=== PATIENT | female | born 1980 | race Caucasian/White ===

== ENCOUNTER 2016-10-16 09:59 | Emergency (ER) | payer OTHER ==
[~2016-10-16 09:59] MED LIST: CHOL200035 PO; OMEG1CAP25 PO; PREN1TAB47 PO; SYN.112T PO
[2016-10-16 10:34] VITALS: BP 100/60; PULSE 70; RESP 16; O2SAT 100
--- NOTE | 2016-10-16 10:48 | ED.REPORT ---
HPI-Extremity Problem Upper Date of Service Oct 16, 2016 ED Provider: Ceasar Ivey MD The patient is a 35 year old female who was brought to the emergency department by EMS after she had a ground level fall that occurred prior to arrival. The patient slipped on ice and injured her left upper extremity. Her pain is most severe to her shoulder and radiates down her arm. She also complains of numbness in her left arm. She did not hit her head or lose consciousness. She denies any other injuries or trauma. She has not injured her left arm or shoulder in the past. Nursing Notes Stated Complaint: LEFT ARM PAIN Chief Complaint: Extremity Trauma Nursing Notes Reviewed: Yes Allergies: Coded Allergies: TAPE (Verified Allergy, Unknown, 10/16/16) Uncoded Allergies: METAL (Allergy, Unknown, 07/28/16) Scheduled CHOLECALCIFEROL-Expunged Drug, Do Not Renew! (VITAMIN D3-Expunged Drug, Do Not Renew!) 2,000 Unit Capsule 2,000 UNIT PO DAILY Levothyroxine Inactive Drug Do Not Use (Synthroid-Expunged Drug, Do Not Renew!) 112 Mcg Tablet 0.112 MG PO DAILYAC 0.112 MG = 112 MCG [place]-3 Fatty Acids/Fish Oil-Expunged, Do Not ([place] 3 Fish Oil-Expunged, Do Not Renew!) 1 Cap.ec Capsule. 1 CAP.EC PO DAILY Vit/Fe Fumarate/Fa-Expunged Drug, Do (-Expunged Drug, Do Not Renew!) 1 Tab Tablet 1 TAB PO DAILY Scheduled PRN Cyclobenzaprine (Cyclobenzaprine) 5 Mg Tablet 5 MG PO HS PRN PRN Spasm Hydrocodone-Acetaminophen 5-325 mg (Hydrocodone-Acetaminophen 5-325 mg) 1 Each Tablet 1 TABLET PO Q4H PRN PRN For Pain General Time Seen by MD: 10:46 Chief Complaint Shoulder injury left, Arm injury left Hx Obtained From: Patient, EMS Arrived By: Ambulance Onset Occurred: Just prior to arrival Symptom Duration: Since onset Caused by: Fall on ground Location: : Arm left: Shoulder left Quality: Painful Severity: Current: Severe Severity: Maximum: Severe Recent Healthcare: No recent doctor visit, No recent hospitalization Similar Sx Previous: No Past Medical History Past Medical History hypothyroid 07/28/2016 Past Surgical History Reports: Family History noncontributory Smoking History Never Smoker Social History Alcohol Use: Denies alcohol use Drug Use: Denies drug use Other Social History: , Local resident Occupation has 4 children at home 07/28/2016 Ambulatory Status Independent Review of Systems Musculoskeletal: Reports: Extremity pain, Joint pain Neurologic: Reports: Numbness, Denies: Change LOC, Headache Complete sys rev & neg: except as marked. Physical Exam Initial Vital Signs Vital Signs (First) Date Time Temp Pulse Resp B/P Pulse Ox O2 Delivery O2 Flow Rate FiO2 10/16/16 10:34 36.2 70 16 100/60 100 10/16/16 12:30 Room Air Initial VS: Reviewed Head / Eyes: Atraumatic, Normocephalic, PERRL ENT: Mucous membranes moist, Conjunctiva normal, No scleral icterus Neck: Supple, Non-tender, Full range of motion Respiratory: Breath sounds normal, Clear to auscultation, No respiratory distress Cardiovascular: Regular rate & rhythm, Heart sounds normal, Intact distal pulses Abdomen / GI: Soft, Non-tender, No guarding, No rebound, No distention Lymphatic: No lymphadenopathy Lower Extremities: Vascular intact, Neuro intact, No swelling, No tenderness Skin: Warm, Dry, No cyanosis Neurologic: Alert, Oriented, Nonfocal Psychiatric: Mood/affect normal, Behavior normal, Normal thought content General/Constitutional: Awake, Alert, Cooperative Upper Extremity / MS: No deformity, Neurologic intact, Vascular intact There is no obvious deformity of her left shoulder, elbow, wrist or hand. Good pulses. She is holding her left arm at her side but it doesn't appear to be dislocated. There is no sign of any obvious fractures. She has tenderness about the lateral left upper arm at the deltoid and anterior shoulder. Neurovascular intact. Interpretation & Diagnostics X-Ray Interpretation Xray Interpretation: IMPRESSION: 1. Mildly comminuted left humeral neck fracture. Dictated by: Kamari Villanueva M.D. on 10/16/2016 at 11:25 X-Ray Ordered: Shoulder left Interpretation / Wet Read by: Interpret - Radiologist Re-Eval/Medical Decision Med Decision/Clinical Course Patient is a generally healthy 35-year-old female who presents with left shoulder pain after a ground-level fall occurring just prior to arrival. She has significant tenderness of her left shoulder though otherwise no evidence of acute traumatic injury. She is neurovascularly intact in the affected extremity. Plain films were obtained and demonstrated a mildly comminuted left humeral neck fracture. Patient was discussed with Dr. Pelaez who recommended sling, pain management and outpatient clinic follow-up. Here in the emergency department the patient was treated with oral norco and Ibuprofen. She declined IV pain medications. She was provided with a sling and referral to orthopedic surgery. She will call tomorrow for an appointment. Follow-up and return precautions were reviewed in detail she was discharged in good condition. She was provided with a prescription for Pegram for pain. She was provided with Flexeril to use at night for muscle spasm and advised not to combine this with narcotic pain medications. Source of Hx: Old records, EMS Re-Evaluation/Progress : Time of Eval: 12:03 Re-Evaluation/Progress Note: Rechecked the patient. Discussed plan for discharge with outpatient followup. All questions were addressed. Consultation : Referral / Consult Name: Zbigniew Pelaez MD Consulted With: Orthopedic Requested Call at: 11:41 Call Returned at: 12:00 Radio Operator: Will see in office, Agrees with eval, Agrees with plan Counseled Regarding: Diagnosis, Need for follow-up, When/why to return to ED Discharge & Departure Impression: Primary Impression: Fracture of neck of left humerus Encounter type: initial encounter Fracture type: closed Qualified Code: S42.212A - Unspecified displaced fracture of surgical neck of left humerus, initial encounter for closed fracture Additional Impression: Fall from ground level Disposition: Home Discharge Condition All VS Reviewed: Yes Condition: Stable Patient Instructions: Arm Fracture in Adults (ED) Additional Instructions: Thank you for seeking care at the emergency room. Our primary goal today in the ED was to evaluate you for any life-threatening conditions. Your evaluation was reassuring. You will be discharged with a prescription for Pegram and Flexeril. You should follow-up with an investor relations specialist in the next few days. We have given you a referral to Dr. Pelaez. Call their office today. Wear the sling until you are evaluated by the orthopedist. You should return to the ED immediately if you develop increased pain, numbness , weakness, or any other concerning signs or symptoms. Thank you for letting us partake in your care today. Narcotic Pain Medicine You have been prescribed a narcotic for pain relief. These drugs are usually combined with acetaminophen (Tylenol#3, Percocet, Darvocet, Anexsia, Vicodin) or aspirin (Empirin#3, Percodan, Synalogs-DC) for increased effect. Narcotics act on the central nervous system to reduce pain; they also impair mental alertness and physical abilities. We advise you not to drink alcohol, drive a car, or operate dangerous equipment when you are taking theses drugs. You can lessen stomach irritation from your medicine by taking it with meals or a full glass of water. Common side effects of narcotics are: Nausea and vomiting, heartburn, consitpation, dizziness, sleepiness, and mood changes. If you have bothersome side effects or symptoms of an allergic reaction (itching, hives, rash), stop taking your medicine and call your doctor or the emergency room right away. Please keep your narcotic medicine well out of the reach of children. Referrals: Shelley Haque (PCP) Zbigniew Pelaez MD Scribe Attestation Portions of this note were transcribed by Giselle Meza. I, Dr. Ivey personally performed the history, physical exam and medical decision-making; I reviewed and confirmed the accuracy of the information in the transcribed note. Signed by: Amol Denis, 10/16/2016 and 1215. copies to: Zbigniew Pelaez MD; Shelley Haque Beck O MD Oct 16, 2016 10:48 Giselle Meza Oct 16, 2016 10:54
[2016-10-16] MEDS ORDERED: HYDROcodone-APAP 5-325 mg Tablet PO ONE (11:25)
[2016-10-16] MEDS ORDERED: HYDR-4003 PO (11:29)
--- NOTE | 2016-10-16 11:30 | DRSVH ---
PROCEDURE: X-RAY LEFT SHOULDER, MINIMUM TWO VIEWS ([id number]) INDICATIONS: trauma TECHNIQUE: 3 views of the shoulder were acquired. COMPARISON: None. FINDINGS: Bones: There is a mildly comminuted fracture of the left humeral neck. No definite extension to the glenohumeral joint. Acromioclavicular joint also appears congruent. No suspicious bony lesions. Vi sualized ribs appear intact. Soft tissues: No suspicious soft tissue calcifications. IMPRESSION: 1. Mildly comminuted left humeral neck fracture. Dictated by: Kamari Villanueva M.D. on 10/16/2016 at 11:25 Approved by: Kamari Villanueva M.D. on 10/16/2016 at 11:28
[2016-10-16] MEDS ORDERED: CYCL5TAB PO (12:13)
[2016-10-16 12:30] VITALS: BP 103/63; PULSE 76; RESP 20; O2SAT 99
[2016-10-16 13:01] VITALS: BP 103/63; PULSE 76; RESP 20; O2SAT 99
== END 2016-10-16 12:05 | disposition home or self-care (01) ==
LOC: SED 09:59
DX: S42.212A Unspecified displaced fracture of surgical neck of left humerus, initial encounter for closed fracture (principal); W00.0XXA Fall on same level due to ice and snow, initial encounter; Y93.89 Activity, other specified; Y92.89 Other specified places as the place of occurrence of the external cause; Y99.8 Other external cause status; E03.9 Hypothyroidism, unspecified; Z91.048 Other nonmedicinal substance allergy status

== ENCOUNTER 2016-10-20 04:54 | Emergency (ER) | payer OTHER ==
[~2016-10-20] VITALS: Ht 165.1 cm; Wt 96.4 kg
[~2016-10-20 04:54] MED LIST changes: +CYCL5TAB PO; +HYDR-4003 PO
[2016-10-20 04:59] VITALS: BP 120/79; PULSE 82; RESP 16; O2SAT 99
--- NOTE | 2016-10-20 05:11 | ED.REPORT ---
HPI-Extremity Problem Lower Date of Service Oct 20, 2016 ED Provider: Rambo Galindo MD Patient is a 35 year old female who presents to the ED with right calf pain and swelling that began last night. Patient describes it has a constant Isma horse. Patient sustained a left humoral fracture on October 16 following a ground level fall. She has been sedentary since that time, in an attempt to avoid surgery. She denies shortness of breath or chest pain. Patient took a Percocet 10mg-325 on arrival to the ED for her pain. Nursing Notes Stated Complaint: RT LEG SWELLING Chief Complaint: Extremity Trauma Nursing Notes Reviewed: Yes Allergies: Coded Allergies: TAPE (Verified Allergy, Unknown, 10/16/16) Uncoded Allergies: METAL (Allergy, Unknown, 07/28/16) Scheduled CHOLECALCIFEROL-Expunged Drug, Do Not Renew! (VITAMIN D3-Expunged Drug, Do Not Renew!) 2,000 Unit Capsule 2,000 UNIT PO DAILY Levothyroxine Inactive Drug Do Not Use (Synthroid-Expunged Drug, Do Not Renew!) 112 Mcg Tablet 0.112 MG PO DAILYAC 0.112 MG = 112 MCG [place]-3 Fatty Acids/Fish Oil-Expunged, Do Not ([place] 3 Fish Oil-Expunged, Do Not Renew!) 1 Cap.ec Capsule. 1 CAP.EC PO DAILY Vit/Fe Fumarate/Fa-Expunged Drug, Do (-Expunged Drug, Do Not Renew!) 1 Tab Tablet 1 TAB PO DAILY Scheduled PRN Cyclobenzaprine (Cyclobenzaprine) 5 Mg Tablet 5 MG PO HS PRN PRN Spasm Hydrocodone-Acetaminophen 5-325 mg (Hydrocodone-Acetaminophen 5-325 mg) 1 Each Tablet 1 TABLET PO Q4H PRN PRN For Pain General Time Seen by MD: 05:11 Chief Complaint Knee injury right Hx Obtained From: Patient Arrived By: Walk-in Onset Occurred: Yesterday Symptom Duration: Since onset Location: : Leg right Quality: Painful Severity: Current: Moderate Severity: Maximum: Moderate Recent Healthcare: No recent doctor visit, No recent hospitalization Similar Sx Previous: No Past Medical History Past Medical History hypothyroid 07/28/2016 recent humoral fracture on Oct 16 Past Surgical History Reports: Family History noncontributory Smoking History Never Smoker Social History Alcohol Use: Denies alcohol use Drug Use: Denies drug use Other Social History: Good social support, , Local resident Occupation has 4 children at home 07/28/2016 Ambulatory Status Independent Review of Systems Musculoskeletal: Reports: Extremity pain, Extremity swelling Complete sys rev & neg: except as marked. Respiratory: Denies: Non-productive cough, Shortness of breath Cardiovascular: Denies: Chest pain, Palpitations Physical Exam Initial Vital Signs Vital Signs (First) Date Time Temp Pulse Resp B/P Pulse Ox O2 Delivery O2 Flow Rate FiO2 10/20/16 04:59 36.4 82 16 120/79 99 Initial VS: Reviewed, Vital signs abnormal Head / Eyes: Atraumatic, Normocephalic, PERRL ENT: Conjunctiva normal, No scleral icterus Neck: Supple, Full range of motion Skin: Warm, Dry, No cyanosis Neurologic: Alert, Oriented, Nonfocal Psychiatric: Mood/affect normal, Behavior normal, Normal thought content Lower Extremity / Pelvis / MS: Neurologic intact, Vascular intact, No edema ( no pitting edema) Right Leg / Calf: Positive: Swelling present... (Mild), Tenderness present... ( Mild) Ankle / Foot: Neurologic intact, Vascular intact General/Constitutional: Awake, Alert, No acute distress Respiratory / Chest: Breath sounds NL, Breath sounds = bilat, No respiratory distress, No rales, No rhonchi, No wheezing not tachypneic or hypoxic Cardiovascular: Heart rate NL, Regular rhythm, No gallop, No murmurs, No rubs Heart Rate / Rhythm: Negative: Tachycardia Upper Extremity / MS: Neurologic intact, Vascular intact Left Shoulder: Positive: Ecchymosis present (large hematoma over the left humerus) left shoulder in sling Re-Eval/Medical Decision Med Decision/Clinical Course 35-year-old female who has been sedentary and has now developed right calf tenderness and swelling. She has a fractured left humerus so d-dimer testing would not be useful. I have ordered an ultrasound of the right lower extremity to be done at 0700 hours. Her care is being turned over at change of shift to Dr. Quiñonez. Source of Hx: Old records Re-Evaluation/Progress : Time of Eval: 05:29 Re-Evaluation/Progress Note: Patient would have a positive D-dimer due to recent fracture. Will call in ultrasound at 7am this morning to rule out DVT. Patient understands and agrees with this plan. All questions were addressed. Discharge & Departure Shift Change Sign-Out Patient Care Transferred: Yes Discussed Complaint(s): Yes Additonal Information: Awaiting ultrasound in the AM Impression: Primary Impression: Right leg swelling Referrals: Shelley Haque (PCP) Care Transferred to: Dr. Quiñonez Care Transferred at: 06:00 Scribe Attestation Portions of this note were transcribed by Christal Reddy. I, Dr. Galindo personally performed the history, physical exam and medical decision-making; I reviewed and confirmed the accuracy of the information in the transcribed note. Signed by: Amol Escalera, 10/20/2016 0616 copies to: Shelley Haque Howard L MD Oct 20, 2016 05:11 Christal Reddy Oct 20, 2016 05:35
[2016-10-20] MEDS ORDERED: ENOX100D4 SUBQ (08:28)
[2016-10-20] MEDS ORDERED: WARF5TAB7 PO (08:28)
--- NOTE | 2016-10-20 08:29 | DRSVH ---
PROCEDURE: US VEINOUS LEG DUPLEX UNILATERAL, RIGHT INDICATIONS: tender calf, immob. TECHNIQUE: Real-time imaging, as well as color and pulse Doppler interrogation, were performed of the lower extr emity deep veins from the inguinal ligament to the popliteal fossa. COMPARISON: None. FINDINGS: The superficial femoral vein and popliteal vein is normally compressible and free of intra luminal thrombus. The deep posterior tibial vein is noncompressible suggesting the presence of thromb us. IMPRESSION: 1. Probable thrombus within the posterior tibial vein. The suprageniculate deep veins of the left low er extremity are patent. These findings were discussed with Dr. Quiñonez at 7:30 AM on 10/20/16. Dictated by: Valentina Romo M.D. on 10/20/2016 at 8:25 Approved by: Valentina Romo M.D. on 10/20/2016 at 8:27
== END 2016-10-20 08:40 | disposition home or self-care (01) ==
LOC: SED 04:54
DX: I82.401 Acute embolism and thrombosis of unspecified deep veins of right lower extremity (principal); E03.9 Hypothyroidism, unspecified
CPT/HCPCS: 93971; 96372; 99284; J1650